=== PATIENT | male | born 1965 | race Caucasian/White ===

== ENCOUNTER 2016-11-02 18:33 | Emergency (ER) | payer SELFPAY ==
[2016-11-02 19:02] LABS: Bilirubin Negative (Negative); Blood, Urine Negative (Negative); Clarity Clear (Clear); Glucose, Urine (Dipstick) Negative (Negative); Leukocyte Negative (Negative); Nitrite Negative (Negative); Protein, Urine (Dipstick) 30 mg/dL (Neg-Trace); Urobilinogen 0.2 mg/dL (0.2-1.0); pH, Urine 5.5 (5.0-9.0)
[2016-11-02 19:04] LABS: Specific Gravity, Urine 1.026 (1.002-1.036)
[2016-11-02] MEDS ORDERED: Sodium Chloride 0.9% 1,000 ML ONE (19:15)
[2016-11-02] MEDS ORDERED: Ketorolac Tromethamine 30 MG/ML VIAL ONE ×2 (19:15)
[2016-11-02 19:26] LABS: #Basophils 0.1 thou/uL (0.0-0.2); #Eosinphils 0.3 thou/uL (0.0-0.7); #Lymphocytes 2.4 thou/uL (1.20-3.40); #Monocytes 0.7 thou/uL (0.11-0.59); #Neutrophils 3.4 thou/uL (1.40-6.50); %Basophils 1.7 % (0.0-1.0); %Eosinophils 4.7 % (0.0-10.0); %Lymphocytes 34.7 % (21.0-51.0); %Monocytes 10.3 % (0.0-10.0); %Neutrophils 48.6 % (42.0-75.0); Hemoglobin 14.2 g/dL (14.0-18.0); Mean Corpuscular HGB CONC 35.1 g/dL (32.0-36.0); Mean Corpuscular Hemoglobin 30.6 pg (27.0-31.0); Mean Corpuscular Volume 87.2 fl (80.0-94.0); Platelet Count 194 thou/uL (130-400); RBC Distribution Width 10.9 % (11.5-14.5); Red Blood Cell (RBC) Count 4.63 mill/uL (4.70-6.10); White Blood Cell (WBC) Count 6.9 thou/uL (4.8-10.8)
[2016-11-02 19:28] LABS: Bacteria/HPF None Seen HPF (None Seen); RBC/HPF None Seen HPF (0-3); Sperm/HPF Rare HPF (None Seen); Squamous Epithelial 0-3 HPF (0-3); WBC/HPF None Seen HPF (0-3)
[2016-11-02 19:34] LABS: ALT (SGPT) 51 U/L (8-55); AST (SGOT) 37 U/L (5-34); Albumin 4.3 g/dL (3.5-5.0); Alkaline Phosphatase 66 U/L (40-150); Anion Gap 15 mmol/L (10-20); BUN (Urea Nitrogen) 8 mg/dL (8.9-20.6); Bilirubin, Total 0.4 mg/dL (0.2-1.2); Calc. Creatinine Clearance 0 mL/min (70-130); Calcium 9.7 mg/dL (7.8-10.44); Carbon Dioxide 25 mmol/L (22-29); Chloride 103 mmol/L (98-107); Estimated GFR-MDRD 60; Globulin 3.2 g/dL (2.4-3.5); Glucose 81 mg/dL (70-105); Potassium 4.6 mmol/L (3.5-5.1); Protein, Total 7.5 g/dL (6.0-8.3); Sodium 138 mmol/L (136-145)
[2016-11-02] MEDS ORDERED: Tamsulosin HCl 0.4 MG CAP ONE (19:55)
--- NOTE | 2016-11-02 21:34 | CT ---
CT OF THE ABDOMEN AND PELVIS WITHOUT CONTRAST: 11/02/16 COMPARISON: None. HISTORY: Right flank pain and difficulty urinating. Right low back pain. TECHNIQUE: Multiple contiguous axial images were obtained in a CT of the abdomen and pelvis without contrast. C oronal reformats were performed. FINDINGS: The liver, gallbladder, kidneys, adrenal glands, spleen, and pancreas are unremarkable, although es luation is limited on this noncontrast examination. Posterior to the right kidney, there is a 3.4 cm low density, well circumscribed mass with a mean Hounsfield unit value of 6. This does not appear t o touch the kidney and may represent a small fluid collection. No calcifications are seen in the ure ters and no hydronephrosis is present. The large and small bowel are unremarkable. The appendix is normal. No abdominal or pelvic lymphaden opathy are seen. Atherosclerotic calcifications are seen in the aorta. Calcified granuloma is seen i n the right lung base. The abdominal wall soft tissues are unremarkable. Degenerative changes are se en in the spine. IMPRESSION: 1. No evidence of acute intra-abdominal/pelvic abnormality. 2. Nonspecific low density mass posterior to the right kidney. This may represent a small fluid collection. POS: [facility]
== END 2016-11-02 20:06 | disposition home or self-care (01) ==
LOC: NAV ERS 18:33
DX: R33.9 Retention of urine, unspecified (principal); J44.9 Chronic obstructive pulmonary disease, unspecified; Z79.899 Other long term (current) drug therapy
CPT/HCPCS: 74176; 80053; 81003; 81015; 85025; 87086; 96361; 96374; J1885; J7050

== ENCOUNTER 2017-06-22 18:39 | Emergency (ER) | payer SELFPAY ==
[~2017-06-22 18:39] MED LIST: Iopamidol 370 76% 100 ML VIAL ONE
[2017-06-22 19:08] LABS: #Basophils 0.1 thou/uL (0.0-0.2); #Eosinphils 0.3 thou/uL (0.0-0.7); #Monocytes 0.6 thou/uL (0.11-0.59); #Neutrophils 4.3 thou/uL (1.40-6.50); %Basophils 1.7 % (0.0-1.0); %Eosinophils 3.5 % (0.0-10.0); %Lymphocytes 27.7 % (21.0-51.0); %Monocytes 8.4 % (0.0-10.0); %Neutrophils 58.7 % (42.0-75.0); Hemoglobin 14.3 g/dL (14.0-18.0); Mean Corpuscular HGB CONC 33.5 g/dL (32.0-36.0); Mean Corpuscular Hemoglobin 29.5 pg (27.0-31.0); Mean Corpuscular Volume 88.1 fl (80.0-94.0); Mean Platelet Volume 6.8 fL (7.4-10.4); Platelet Count 250 thou/uL (130-400); RBC Distribution Width 11.2 % (11.5-14.5); Red Blood Cell (RBC) Count 4.86 mill/uL (4.70-6.10); White Blood Cell (WBC) Count 7.3 thou/uL (4.8-10.8)
[2017-06-22 19:16] LABS: ALT (SGPT) 49 U/L (8-55); AST (SGOT) 44 U/L (5-34); Albumin 4.2 g/dL (3.5-5.0); Alkaline Phosphatase 74 U/L (40-150); Anion Gap 15 mmol/L (10-20); BUN (Urea Nitrogen) 15 mg/dL (8.4-25.7); Bilirubin, Total 0.4 mg/dL (0.2-1.2); Calc. Creatinine Clearance 0 mL/min (70-130); Calcium 9.6 mg/dL (7.8-10.44); Carbon Dioxide 23 mmol/L (22-29); Chloride 106 mmol/L (98-107); Estimated GFR-MDRD 52; Globulin 3.1 g/dL (2.4-3.5); Glucose 106 mg/dL (70-105); Lipase 20 U/L (8-78); Protein, Total 7.3 g/dL (6.0-8.3); Sodium 140 mmol/L (136-145)
[2017-06-22 19:20] LABS: Troponin I Less than 0.010 ng/mL (< 0.028)
[2017-06-22] MEDS ORDERED: Ibuprofen 800 MG TAB ONE (19:32)
--- NOTE | 2017-06-22 19:44 | RAD ---
PORTABLE CHEST: 06/22/17 HISTORY: Left sided chest pain. COMPARISON: 08/21/14 study. Heart size and mediastinum are within normal limits. The lungs appear clear of any infiltrative proc ess. There is some minimal linear change in the left base which could represent some subsegmental ate lectasis. IMPRESSION: Minimal linear atelectasis left lung base. POS: [facility]
[2017-06-22 19:48] LABS: CKMB 8.2 ng/mL (0-6.6)
[2017-06-22] MEDS ORDERED: Mag-Al Plus 1200 MG/1200 MG/120 MG/30 ML UDCUP ONE (20:33)
[2017-06-22] MEDS ORDERED: Famotidine/PF 20 mg/2ml Vial ONE (20:33)
[2017-06-22] MEDS ORDERED: Lidocaine Viscous Sol 2% 15 ml UD Cup ONE (20:33)
--- NOTE | 2017-06-22 20:52 | CT ---
CT OF ABDOMEN AND PELVIS PERFORMED WITH CONTRAST ENHANCEMENT: 06/22/17 HISTORY: Left sided abdomen pain and left chest pain. COMPARISON: 11/02/16 study. Subsegmental atelectatic changes are seen in the lung bases. The liver and spleen show no focal abnor malities. There is a low attenuation mass involving the body of the pancreas measuring 8 to 9 mm in s ize. It is more difficult to visualize on the prior exam but appears stable. The gallbladder region appears unremarkable. Right and left adrenal glands and right and left kidneys are normal in size. There is no significant periaortic or mesenteric adenopathy. Once again, there is a slightly oblong shaped fluid density kerry ection in the right retroperitoneum. It is posterolateral to the right kidney. It measures 2.9 cm in size. It does not appear to contact the kidney. CT OF PELVIS PERFORMED WITH CONTRAST ENHANCEMENT: There is no evidence of adenopathy, mass or free fluid. The appendix region is unremarkable. IMPRESSION: 1. No acute abnormalities of the abdomen or pelvis. 2. Subsegmental atelectatic change of the lung bases. 3. Stable 9 mm cystic lesion in the body of the pancreas. 4. Stable fluid density collection in the right retroperitoneum. POS: [facility]
== END 2017-06-22 21:55 | disposition short-term general hospital (02) ==
LOC: NAV ERS 18:39
DX: R10.12 Left upper quadrant pain (principal); R07.9 Chest pain, unspecified; J44.9 Chronic obstructive pulmonary disease, unspecified
CPT/HCPCS: 71045; 74177; 80053; 82553; 83605; 83690; 84484; 85025; 93005; 94760; 96374; S0028

== ENCOUNTER 2017-07-24 10:11 | Emergency (ER) | payer OTHER, SELFPAY ==
[2017-07-24] MEDS ORDERED: Sodium Chloride 0.9% 1,000 ML ONE ×2 (10:19→10:37)
[2017-07-24] MEDS ORDERED: Nitrazine Tape 1 ROLL ONE ×2 (10:37→12:16)
[2017-07-24] MEDS ORDERED: Fluorescein Opthalmic Strip ONE (11:31)
== END 2017-07-24 11:57 | disposition home or self-care (01) ==
LOC: NAV ERS 10:11
DX: Z77.098 Contact with and (suspected) exposure to other hazardous, chiefly nonmedicinal, chemicals (principal); J44.9 Chronic obstructive pulmonary disease, unspecified
CPT/HCPCS: 80305; 99283; G0477; J7050

== ENCOUNTER 2019-04-17 16:07 | Emergency (ER) | payer SELFPAY | END 2019-04-17 16:45 | disposition home or self-care (01) | LOC: NAV ERS 16:07 | DX: J44.1 Chronic obstructive pulmonary disease with (acute) exacerbation (principal); F17.220 Nicotine dependence, chewing tobacco, uncomplicated; Z79.51 Long term (current) use of inhaled steroids | CPT/HCPCS: 99282 ==

== ENCOUNTER 2019-04-29 11:56 | Emergency (ER) | payer OTHER, SELFPAY ==
[2019-04-29] MEDS ORDERED: Adacel (T-DAP) 0.5 ML SYRINGE ONE (12:10)
[2019-04-29] MEDS ORDERED: Ketorolac Tromethamine 60 MG/2 ML VIAL ONE (12:10)
--- NOTE | 2019-04-29 12:36 | RAD ---
Right elbow 4 views: 04/29/2019 COMPARISON: None available HISTORY: Fall, trauma, pain FINDINGS: The lateral examination demonstrates no significant elbow joint effusion. No displaced frac ture or evidence of dislocation is seen. There is osteophyte formation in the region of the radial head and coronoid process. IMPRESSION: No displaced fracture or dislocation. No significant elbow joint effusion seen on the lat eral view. If symptoms persist, immobilization and follow-up imaging in 7-10 days suggested.
--- NOTE | 2019-04-29 12:38 | RAD ---
Chest AP view INDICATION: Fall COMPARISON: Prior single view of the chest dated 06/22/2017 FINDINGS: Lungs: The lungs are clear Cardiac silhouette: Stable mild cardiomegaly Pulmonary vasculature: Normal Pleural spaces: No pleural effusion or pneumothorax is demonstrated. Upper abdomen: No abnormality seen. Osseous structures: Stable healed rib deformities involving the right chest wall. No acute osseous a bnormality. Additional findings: None. IMPRESSION: No acute cardiopulmonary abnormality.
--- NOTE | 2019-04-29 12:50 | RAD ---
XR Lumbar Spine 2 Or 3 View HISTORY: Fall, neck pain FINDINGS: No fracture or subluxation is identified.
--- NOTE | 2019-04-29 12:52 | RAD ---
XR Pelvis AP STANDARD HISTORY: Fall, hip pain FINDINGS: No fracture or dislocation is identified.
--- NOTE | 2019-04-29 14:34 | RAD ---
3 views of the thoracic spine INDICATION: Fall COMPARISON: None FINDINGS: No acute fracture or subluxation is evident. There is mild multilevel disc degenerative dis ease. Spinal alignment is within normal limits. There are healed rib deformities involving the right third through sixth ribs posterolaterally. IMPRESSION: No acute fracture or subluxation. Mild thoracic spondylosis.
== END 2019-04-29 14:32 | disposition home or self-care (01) ==
LOC: NAV ERS 11:56
DX: S20.211A Contusion of right front wall of thorax, initial encounter (principal); S30.0XXA Contusion of lower back and pelvis, initial encounter; S20.229A Contusion of unspecified back wall of thorax, initial encounter; S50.01XA Contusion of right elbow, initial encounter; J44.9 Chronic obstructive pulmonary disease, unspecified; F17.220 Nicotine dependence, chewing tobacco, uncomplicated; Z23 Encounter for immunization; Z79.51 Long term (current) use of inhaled steroids; W17.89XA Other fall from one level to another, initial encounter; S80.819A Abrasion, unspecified lower leg, initial encounter
CPT/HCPCS: 71046; 72070; 72100; 72170; 90471; 90715; 96372; 99001; J1885

== ENCOUNTER 2019-10-19 13:44 | Emergency (ER) | payer OTHER, SELFPAY ==
[2019-10-19] MEDS ORDERED: Ventolin HFA Inhaler 60 PUFF INHALER ONE (14:13)
[2019-10-19] MEDS ORDERED: methylPREDNISolone Sod Succ/PF 125 MG/2 ML VIAL ONE (14:13)
[2019-10-19 14:24] LABS: #Basophils 0.1 thou/uL (0.0-0.2); #Eosinphils 0.3 thou/uL (0.0-0.7); #Lymphocytes 1.6 thou/uL (1.20-3.40); #Monocytes 0.6 thou/uL (0.11-0.59); #Neutrophils 3.2 thou/uL (1.40-6.50); %Basophils 2.2 % (0.0-1.0); %Eosinophils 5.6 % (0.0-10.0); %Lymphocytes 27.2 % (21.0-51.0); %Monocytes 10.7 % (0.0-10.0); %Neutrophils 54.4 % (42.0-75.0); Mean Corpuscular HGB CONC 32.4 g/dL (32.0-36.0); Mean Corpuscular Hemoglobin 29.5 pg (27.0-31.0); Mean Platelet Volume 7.2 fL (7.4-10.4); Platelet Count 202 thou/uL (130-400); RBC Distribution Width 11.3 % (11.5-14.5); Red Blood Cell (RBC) Count 5.07 mill/uL (4.70-6.10); White Blood Cell (WBC) Count 5.8 thou/uL (4.8-10.8)
[2019-10-19 14:43] LABS: ALT (SGPT) 26 U/L (8-55); AST (SGOT) 19 U/L (5-34); Albumin 4.4 g/dL (3.5-5.0); Alkaline Phosphatase 75 U/L (40-110); Anion Gap 16 mmol/L (10-20); BUN (Urea Nitrogen) 8 mg/dL (8.4-25.7); Bilirubin, Total 0.6 mg/dL (0.2-1.2); CK (CPK) 127 U/L (30-200); Calc. Creatinine Clearance 0 mL/min (70-130); Calcium 9.3 mg/dL (7.8-10.44); Carbon Dioxide 23 mmol/L (22-29); Chloride 103 mmol/L (98-107); Estimated GFR-MDRD 78; Globulin 2.9 g/dL (2.4-3.5); Glucose 118 mg/dL (70-105); Potassium 4.1 mmol/L (3.5-5.1); Protein, Total 7.3 g/dL (6.0-8.3); Sodium 138 mmol/L (136-145)
--- NOTE | 2019-10-19 14:56 | RAD ---
XR Chest 1 View Portable HISTORY: Shortness with COMPARISON: 06/22/2017 FINDINGS: The heart size is normal. The lungs are well expanded without focal areas of consolidation, pneumothorax or pleural effusions. There are old right-sided rib fractures. IMPRESSION: No radiographic evidence of acute cardiopulmonary process.
[2019-10-21 11:36] LABS: SARS-CoV-2 MS2 Positive; SARS-CoV-2 N Gene Negative; SARS-CoV-2 S Gene Negative; SARS-CoV-2 by NAA Not Detected (NotDetected); SARS-CoV-2 orf1ab Negative
== END 2019-10-19 15:20 | disposition home or self-care (01) ==
LOC: NAV ERS 13:44
DX: J44.1 Chronic obstructive pulmonary disease with (acute) exacerbation (principal); Z79.899 Other long term (current) drug therapy
CPT/HCPCS: 71045; 80053; 82550; 83880; 84484; 85025; 87635; 93005; 96374; J2930; U0003

== ENCOUNTER 2020-05-27 22:04 | Emergency (ER) | payer SELFPAY ==
[2020-05-27] MEDS ORDERED: Bacitracin 1 PK ONE (22:25)
[2020-05-27] MEDS ORDERED: Lidocaine 1% (PF) 30 ML VIAL ONE (22:25)
[2020-05-27] MEDS ORDERED: Boostrix 0.5 ML (Tdap) VIAL ONE (22:26)
== END 2020-05-27 22:55 | disposition home or self-care (01) ==
LOC: NAV ERS 22:04
DX: S61.215A Laceration without foreign body of left ring finger without damage to nail, initial encounter (principal); J44.9 Chronic obstructive pulmonary disease, unspecified; Z87.891 Personal history of nicotine dependence; W26.0XXA Contact with knife, initial encounter; Y92.009 Unspecified place in unspecified non-institutional (private) residence as the place of occurrence of the external cause
CPT/HCPCS: 12001; 90471; 90715; J2001

== ENCOUNTER 2020-05-31 12:14 | Emergency (ER) | payer SELFPAY ==
[2020-05-31] MEDS ORDERED: Sodium Chloride 0.9% 1,000 ML ONE (12:46)
[2020-05-31] MEDS ORDERED: Ondansetron PF 4 MG/2 ML Vial ONE (12:49)
[2020-05-31 13:06] LABS: #Lymphocytes 1.2 thou/uL (1.20-3.40); #Monocytes 0.2 thou/uL (0.11-0.59); #Neutrophils 7.2 thou/uL (1.40-6.50); %Basophils 0.4 % (0.0-1.0); %Eosinophils 0.3 % (0.0-10.0); %Lymphocytes 13.7 % (21.0-51.0); %Monocytes 2.3 % (0.0-10.0); %Neutrophils 83.3 % (42.0-75.0); Hemoglobin 15.1 g/dL (14.0-18.0); Mean Corpuscular HGB CONC 30.8 g/dL (32.0-36.0); Mean Corpuscular Hemoglobin 28.5 pg (27.0-31.0); Mean Corpuscular Volume 92.5 fL (78.0-98.0); Mean Platelet Volume 7.3 fL (7.4-10.4); Platelet Count 282 thou/uL (130-400); RBC Distribution Width 11.2 % (11.5-14.5); White Blood Cell (WBC) Count 8.7 thou/uL (4.8-10.8)
[2020-05-31 13:21] LABS: ALT (SGPT) 42 U/L (8-55); AST (SGOT) 29 U/L (5-34); Albumin 4.4 g/dL (3.5-5.0); Alkaline Phosphatase 62 U/L (40-110); Anion Gap 13 mmol/L (10-20); BUN (Urea Nitrogen) 9 mg/dL (8.4-25.7); Bilirubin, Total 0.5 mg/dL (0.2-1.2); Calc. Creatinine Clearance 0 mL/min (70-130); Calcium 9.7 mg/dL (7.8-10.44); Carbon Dioxide 24 mmol/L (22-29); Chloride 103 mmol/L (98-107); Globulin 3.1 g/dL (2.4-3.5); Glucose 128 mg/dL (70-105); Lipase 15 U/L (8-78); Potassium 4.3 mmol/L (3.5-5.1); Protein, Total 7.5 g/dL (6.0-8.3); Sodium 136 mmol/L (136-145)
== END 2020-05-31 14:25 | disposition home or self-care (01) ==
LOC: NAV ERS 12:14
DX: R19.7 Diarrhea, unspecified (principal); R11.2 Nausea with vomiting, unspecified; R42 Dizziness and giddiness; J44.9 Chronic obstructive pulmonary disease, unspecified; Z87.891 Personal history of nicotine dependence
CPT/HCPCS: 70450; 80053; 83690; 85025; 96374; J2405; J7050

== ENCOUNTER 2020-07-22 17:58 | Emergency (ER) | payer SELFPAY ==
[2020-07-22 18:30] LABS: #Basophils 0.1 thou/uL (0.0-0.2); #Lymphocytes 2.9 thou/uL (1.20-3.40); #Monocytes 0.7 thou/uL (0.11-0.59); #Neutrophils 7.1 thou/uL (1.40-6.50); %Basophils 0.8 % (0.0-1.0); %Eosinophils 0.4 % (0.0-10.0); %Lymphocytes 26.9 % (21.0-51.0); %Monocytes 6.6 % (0.0-10.0); %Neutrophils 65.4 % (42.0-75.0); Hemoglobin 14.8 g/dL (14.0-18.0); Mean Corpuscular HGB CONC 30.1 g/dL (32.0-36.0); Mean Corpuscular Hemoglobin 27.7 pg (27.0-31.0); Mean Corpuscular Volume 92.1 fL (78.0-98.0); Mean Platelet Volume 7.4 fL (7.4-10.4); Platelet Count 272 thou/uL (130-400); RBC Distribution Width 12.3 % (11.5-14.5); Red Blood Cell (RBC) Count 5.34 mill/uL (4.70-6.10); White Blood Cell (WBC) Count 10.8 thou/uL (4.8-10.8)
[2020-07-22] MEDS ORDERED: Ondansetron PF 4 MG/2 ML Vial ONE (18:44)
[2020-07-22] MEDS ORDERED: Sodium Chloride 0.9% 1,000 ML ONE (18:44)
[2020-07-22 18:45] LABS: ALT (SGPT) 29 U/L (8-55); AST (SGOT) 20 U/L (5-34); Albumin 4.4 g/dL (3.5-5.0); Alkaline Phosphatase 64 U/L (40-110); Anion Gap 16 mmol/L (10-20); BUN (Urea Nitrogen) 8 mg/dL (8.4-25.7); Bilirubin, Total 0.6 mg/dL (0.2-1.2); Calc. Creatinine Clearance 0 mL/min (70-130); Calcium 9.1 mg/dL (7.8-10.44); Carbon Dioxide 22 mmol/L (22-29); Chloride 102 mmol/L (98-107); Globulin 3.1 g/dL (2.4-3.5); Glucose 82 mg/dL (70-105); Lipase 16 U/L (8-78); Potassium 4.2 mmol/L (3.5-5.1); Protein, Total 7.5 g/dL (6.0-8.3); Sodium 136 mmol/L (136-145)
[2020-07-22 20:14] LABS: Bilirubin Negative (Negative); Blood, Urine Trace (Negative); Clarity Clear (Clear); Glucose, Urine (Dipstick) Negative (Negative); Ketone, Urine Negative (Negative); Leukocyte Negative (Negative); Nitrite Negative (Negative); Protein, Urine (Dipstick) Negative (Neg-Trace); Urobilinogen 0.2 mg/dL (Less than 2)
[2020-07-22 20:22] LABS: RBC/HPF 0-3 HPF (0-3); Squamous Epithelial 0-3 HPF (0-3)
== END 2020-07-22 20:25 | disposition home or self-care (01) ==
LOC: NAV ERS 17:58
DX: K86.2 Cyst of pancreas (principal); N40.0 Benign prostatic hyperplasia without lower urinary tract symptoms; J44.9 Chronic obstructive pulmonary disease, unspecified; Z87.891 Personal history of nicotine dependence; Z79.899 Other long term (current) drug therapy
CPT/HCPCS: 74177; 80053; 81003; 81015; 83690; 84484; 85025; 93005; 96374; J2405; J7050; Q9967

== ENCOUNTER 2021-05-07 09:26 | Emergency (ER) | payer SELFPAY ==
[2021-05-07] MEDS ORDERED: Sodium Chloride 0.9% 1,000 ML ONE (10:15)
[2021-05-07] MEDS ORDERED: Ondansetron PF 4 MG/2 ML Vial ONE (10:15)
[2021-05-07 10:24] LABS: #Basophils 0.1 thou/uL (0.0-0.2); #Eosinphils 0.3 thou/uL (0.0-0.7); #Monocytes 0.5 thou/uL (0.11-0.59); #Neutrophils 5.8 thou/uL (1.40-6.50); %Basophils 1.2 % (0.0-1.0); %Eosinophils 2.9 % (0.0-10.0); %Lymphocytes 23.1 % (21.0-51.0); %Monocytes 6.1 % (0.0-10.0); %Neutrophils 66.6 % (42.0-75.0); Hemoglobin 15.5 g/dL (14.0-18.0); Mean Corpuscular HGB CONC 32.8 g/dL (32.0-36.0); Mean Corpuscular Hemoglobin 29.7 pg (27.0-31.0); Mean Corpuscular Volume 90.5 fL (78.0-98.0); Mean Platelet Volume 7.4 fL (7.4-10.4); Platelet Count 268 thou/uL (130-400); RBC Distribution Width 11.7 % (11.5-14.5); Red Blood Cell (RBC) Count 5.23 mill/uL (4.70-6.10); White Blood Cell (WBC) Count 8.8 thou/uL (4.8-10.8)
[2021-05-07 10:39] LABS: ALT (SGPT) 38 U/L (8-55); AST (SGOT) 28 U/L (5-34); Albumin 4.7 g/dL (3.5-5.0); Alkaline Phosphatase 78 U/L (40-110); Anion Gap 13 mmol/L (10-20); BUN (Urea Nitrogen) 9 mg/dL (8.4-25.7); Bilirubin, Total 0.6 mg/dL (0.2-1.2); Calc. Creatinine Clearance 0 mL/min (70-130); Calcium 9.7 mg/dL (7.8-10.44); Carbon Dioxide 22 mmol/L (22-29); Chloride 104 mmol/L (98-107); Globulin 3.1 g/dL (2.4-3.5); Glucose 102 mg/dL (70-105); Lipase 22 U/L (8-78); Potassium 4.1 mmol/L (3.5-5.1); Protein, Total 7.8 g/dL (6.0-8.3); Sodium 135 mmol/L (136-145)
[2021-05-07 10:43] LABS: Bilirubin Negative (Negative); Blood, Urine Negative (Negative); Clarity Clear (Clear); Glucose, Urine (Dipstick) Negative (Negative); Ketone, Urine Negative (Negative); Leukocyte Negative (Negative); Nitrite Negative (Negative); Protein, Urine (Dipstick) Negative (Neg-Trace); Urobilinogen 0.2 mg/dL (Less than 2); pH, Urine 7.5 (5.0-9.0)
[2021-05-07 19:41] LABS: SARS-CoV-2 PCR by NAA Not Detected (NotDetected)
== END 2021-05-07 12:12 | disposition home or self-care (01) ==
LOC: NAV ERS 09:26
DX: B34.9 Viral infection, unspecified (principal); K86.2 Cyst of pancreas; K68.9 Other disorders of retroperitoneum; G89.29 Other chronic pain; J44.9 Chronic obstructive pulmonary disease, unspecified; K21.9 Gastro-esophageal reflux disease without esophagitis; N40.0 Benign prostatic hyperplasia without lower urinary tract symptoms; Z20.822 Contact with and (suspected) exposure to COVID-19; Z87.891 Personal history of nicotine dependence; Z79.899 Other long term (current) drug therapy; Z79.51 Long term (current) use of inhaled steroids
CPT/HCPCS: 74177; 80053; 81003; 83690; 85025; 87804; 96374; J2405; J7050; U0003; U0005

== ENCOUNTER 2021-12-22 16:23 | Emergency (ER) | payer SELFPAY ==
[2021-12-22 17:30] LABS: Bilirubin Negative (Negative); Blood, Urine Trace (Negative); Clarity Clear (Clear); Glucose, Urine (Dipstick) Negative (Negative); Ketone, Urine Negative (Negative); Leukocyte Negative (Negative); Nitrite Negative (Negative); Protein, Urine (Dipstick) Negative (Neg-Trace); Specific Gravity, Urine 1.015 (1.005-1.030); Urobilinogen 0.2 mg/dL (Less than 2)
[2021-12-22 17:50] LABS: RBC/HPF 0-3 HPF (0-3)
[2021-12-22 17:53] LABS: #Basophils 0.1 thou/uL (0.0-0.2); #Eosinphils 0.2 thou/uL (0.0-0.7); #Lymphocytes 2.4 thou/uL (1.20-3.40); #Monocytes 0.6 thou/uL (0.11-0.59); #Neutrophils 3.8 thou/uL (1.40-6.50); %Basophils 1.6 % (0.0-1.0); %Eosinophils 2.6 % (0.0-10.0); %Lymphocytes 34.3 % (21.0-51.0); %Neutrophils 53.5 % (42.0-75.0); Hemoglobin 14.6 g/dL (14.0-18.0); Mean Corpuscular HGB CONC 33.3 g/dL (32.0-36.0); Mean Corpuscular Hemoglobin 30.3 pg (27.0-31.0); Mean Corpuscular Volume 91.1 fl (78.0-98.0); Mean Platelet Volume 7.3 fL (7.4-10.4); Platelet Count 252 10x3/uL (130-400); Red Blood Cell (RBC) Count 4.82 mill/uL (4.70-6.10); White Blood Cell (WBC) Count 7.1 10x3/uL (4.8-10.8)
[2021-12-22 18:08] LABS: ALT (SGPT) 23 U/L (8-55); AST (SGOT) 23 U/L (5-34); Albumin 4.3 g/dL (3.5-5.0); Alkaline Phosphatase 72 U/L (40-110); Anion Gap 14 mmol/L (10-20); BUN (Urea Nitrogen) 8 mg/dL (8.4-25.7); Bilirubin, Total 0.6 mg/dL (0.2-1.2); Calc. Creatinine Clearance 0 mL/min (70-130); Calcium 9.4 mg/dL (7.8-10.44); Carbon Dioxide 24 mmol/L (22-29); Chloride 104 mmol/L (98-107); Estimated GFR 77; Globulin 3.2 g/dL (2.4-3.5); Glucose 109 mg/dL (70-105); Lipase 20 U/L (8-78); Potassium 3.7 mmol/L (3.5-5.1); Protein, Total 7.5 g/dL (6.0-8.3); Sodium 138 mmol/L (136-145)
== END 2021-12-22 20:25 | disposition home or self-care (01) ==
LOC: NAV ERS 16:23
DX: S39.011A Strain of muscle, fascia and tendon of abdomen, initial encounter (principal); K86.2 Cyst of pancreas; K68.9 Other disorders of retroperitoneum; E78.00 Pure hypercholesterolemia, unspecified; I10 Essential (primary) hypertension; J44.9 Chronic obstructive pulmonary disease, unspecified; Z87.891 Personal history of nicotine dependence; Z79.899 Other long term (current) drug therapy; X58.XXXA Exposure to other specified factors, initial encounter
CPT/HCPCS: 74177; 80053; 81003; 81015; 83690; 85025; 93005; Q9967

== ENCOUNTER 2022-01-08 09:41 | Emergency (ER) | payer SELFPAY ==
[2022-01-08] MEDS ORDERED: Oseltamivir 75 MG CAP ONE (10:41)
== END 2022-01-08 10:40 | disposition home or self-care (01) ==
LOC: NAV ERS 09:41
DX: J11.1 Influenza due to unidentified influenza virus with other respiratory manifestations (principal); E78.00 Pure hypercholesterolemia, unspecified; I10 Essential (primary) hypertension; J44.9 Chronic obstructive pulmonary disease, unspecified; K21.9 Gastro-esophageal reflux disease without esophagitis; Z79.899 Other long term (current) drug therapy; Z87.891 Personal history of nicotine dependence
CPT/HCPCS: 99283

== ENCOUNTER 2022-03-09 19:29 | Emergency (ER) | payer SELFPAY ==
[2022-03-09 20:02] LABS: #Basophils 0.1 thou/uL (0.0-0.2); #Eosinphils 0.2 thou/uL (0.0-0.7); #Monocytes 0.7 thou/uL (0.11-0.59); #Neutrophils 5.1 thou/uL (1.40-6.50); %Basophils 1.3 % (0.0-1.0); %Eosinophils 2.3 % (0.0-10.0); %Lymphocytes 33.1 % (21.0-51.0); %Monocytes 7.3 % (0.0-10.0); Hemoglobin 15.3 g/dL (14.0-18.0); Mean Corpuscular HGB CONC 33.4 g/dL (32.0-36.0); Mean Corpuscular Hemoglobin 30.3 pg (27.0-31.0); Mean Corpuscular Volume 90.9 fl (78.0-98.0); Mean Platelet Volume 6.9 fL (7.4-10.4); Platelet Count 233 10x3/uL (130-400); RBC Distribution Width 11.4 % (11.5-14.5); Red Blood Cell (RBC) Count 5.04 mill/uL (4.70-6.10)
[2022-03-09 20:07] LABS: Bilirubin Negative (Negative); Blood, Urine Trace (Negative); Clarity Clear (Clear); Glucose, Urine (Dipstick) Negative (Negative); Ketone, Urine Negative (Negative); Leukocyte Negative (Negative); Nitrite Negative (Negative); Protein, Urine (Dipstick) Negative (Neg-Trace); Specific Gravity, Urine 1.015 (1.005-1.030); Urobilinogen 0.2 mg/dL (Less than 2); pH, Urine 6.5 (5.0-9.0)
[2022-03-09 20:13] LABS: WBC/HPF None Seen HPF (0-3)
[2022-03-09 20:14] LABS: Bacteria/HPF None Seen HPF (None Seen); RBC/HPF 0-3 HPF (0-3); Squamous Epithelial 0-3 HPF (0-3)
[2022-03-09 20:15] LABS: ALT (SGPT) 29 U/L (8-55); AST (SGOT) 25 U/L (5-34); Albumin 4.6 g/dL (3.5-5.0); Alkaline Phosphatase 63 U/L (40-110); Anion Gap 14 mmol/L (10-20); BUN (Urea Nitrogen) 13 mg/dL (8.4-25.7); Bilirubin, Total 0.8 mg/dL (0.2-1.2); CK (CPK) 311 U/L (30-200); Calc. Creatinine Clearance 0 mL/min (70-130); Calcium 9.6 mg/dL (7.8-10.44); Carbon Dioxide 23 mmol/L (22-29); Chloride 103 mmol/L (98-107); Estimated GFR 65; Globulin 2.8 g/dL (2.4-3.5); Glucose 96 mg/dL (70-105); Lipase 15 U/L (8-78); Magnesium 2.1 mg/dL (1.6-2.6); Potassium 4.1 mmol/L (3.5-5.1); Protein, Total 7.4 g/dL (6.0-8.3); Sodium 136 mmol/L (136-145)
[2022-03-09] MEDS ORDERED: Morphine 4 MG/ML VIAL ONE (20:21)
[2022-03-09] MEDS ORDERED: Mag-Al Plus 1200 MG/1200 MG/120 MG/30 ML UDCUP ONE (21:06)
[2022-03-09] MEDS ORDERED: Lidocaine Viscous Sol 2% 15 ml UD Cup ONE (21:06)
== END 2022-03-09 22:07 | disposition home or self-care (01) ==
LOC: NAV ERS 19:29
DX: R10.12 Left upper quadrant pain (principal); E78.00 Pure hypercholesterolemia, unspecified; J44.9 Chronic obstructive pulmonary disease, unspecified; Z87.891 Personal history of nicotine dependence; Z79.899 Other long term (current) drug therapy
CPT/HCPCS: 36415; 74177; 80053; 81003; 81015; 82550; 83605; 83690; 83735; 84484; 85025; 93005; 96374; J2270; Q9967